=== PATIENT | female | born 1960 | race Caucasian/White ===

== ENCOUNTER 2019-11-01 06:22 | Emergency (ER) | payer OTHER ==
[2019-11-01 06:30] VITALS: BP 129/73
--- NOTE | 2019-11-01 06:48 | ED Physician Documentation ---
PD HPI URI - Stated complaint Stated Complaint: COUGH - Chief complaint Chief Complaint: Resp - History obtained from History obtained from: Patient - History of Present Illness Timing - onset: How many weeks ago (2) Timing duration: Weeks (2) Timing details: Gradual onset, Still present Associated symptoms: Fever, Nasal congestion, Sore throat, Productive cough, Chest pain, Dyspnea. No: Ear pain, Rhinorrhea Contributing factors: No: COPD / asthma Worsened by: Activity, Breathing Recently seen: Clinic - Additional information Additional information: This is a 59-year-old woman who presents with complaints that she think she has bronchitis. She is had a cold for about the past 2 weeks it started out with a scratchy throat and then developed a cough that was productive of phlegm and the phlegm kind of cleared up but now has moved up into her nose and her sinuses. About a week ago she started to the point she was just constantly coughing with this harsh cough and now she just brings up a little bit of phlegm occasionally no blood in it. It hurts for her to take a deep breath and she is been having sharp pains across the anterior chest with breathing. She had some wheezing last week but she did go and see her primary care provider and they provided a prescription for albuterol which seems to be helping some and told her to take Mucinex DM. She is exceedingly thirsty. And she cannot sleep at night because of the cough. She was also given a prescription for a Z-Nicholas but did not start it. She had a fever up to 101 degrees about 5 days ago and no fever since. She is continued to work through this. She is an ex-smoker. Review of Systems Constitutional: reports: Fever Ears: denies: Ear pain Nose: reports: Congestion Throat: reports: Sore throat Cardiac: reports: Chest pain / pressure Respiratory: reports: Dyspnea, Cough GI: denies: Vomiting PD PAST MEDICAL HISTORY - Present Medications Home Medications: Ambulatory Orders Medication Instructions Recorded Confirmed No Known Home Medications 11/01/19 11/01/19 - Allergies Allergies/Adverse Reactions: Allergies Allergy/AdvReac Type Severity Reaction Status Date / Time No Known Drug Allergies Allergy Verified 11/01/19 06:30 PD ED PE NORMAL - Vitals Vital signs reviewed: Yes - General General: Alert and oriented X 3, No acute distress, Well developed/nourished - HEENT HEENT: Atraumatic, PERRL, EOMI, Ears normal. No: Moist mucous membranes (She has very dry mucous membranes.) - Neck Neck: Supple, no meningeal sign, No adenopathy - Cardiac Cardiac: RRR, No murmur, Strong equal pulses - Respiratory Respiratory: No respiratory distress, Other (Diminished breath sounds at the bases and a rub at the left base. She is a very harsh sounding cough.) - Abdomen Abdomen: Normal bowel sounds - Derm Derm: Normal color, Warm and dry - Neuro Neuro: Alert and oriented X 3, No motor deficit, No sensory deficit, Normal speech - Psych Psych: Normal mood, Normal affect Results - Vitals Vitals: Vital Signs - 24 hr 11/01/19 06:26 Temperature 37.1 C Heart Rate 81 Respiratory 16 Rate Blood Pressure 129/73 O2 Saturation 94 Oxygen O2 Source Room air PD MEDICAL DECISION MAKING - ED course Complexity details: d/w patient ED course: Patient already has the Z-Nicholas prescription at home of encouraged her to go ahead and start it. Recommended steam to help moisturize her mucous membranes and c hange to using Delsym for the cough which is just a straight cough suppressant. Have also asked her to use the albuterol every 4 hours for the next 3 to 4 days. Limit ibuprofen to 4 tablets every 8 hours with food. She is given a note to be off work until Monday. Departure - Departure Disposition: Home, Self Care Clinical Impression: Bronchitis Condition: Good Instructions: ED Upper Resp Infec Abx Tx Follow-Up: [facility] [Provider Group] Comments: Use steam to help moisturize your mucous membranes. Try Delsym [id number] as a cough suppressant. Limit ibuprofen to 4 tablets every 8 hours with food. Use the albuterol inhaler every 4 hours for the next 3 to 4 days. Take the Z- Nicholas that was prescribed by your primary care provider. If you are not seeing improvement after starting the Z-Nicholas within 3 days you should be reevaluated. Forms: Activity restrictions
== END 2019-11-01 07:21 | disposition home or self-care (01) ==
LOC: ED 06:22
DX: J40 Bronchitis, not specified as acute or chronic (principal)
CPT/HCPCS: 99282; 99284

== ENCOUNTER 2021-06-20 13:15 | Emergency (ER) | payer OTHER ==
--- NOTE | 2021-06-20 13:49 | ED Physician Documentation ---
PD HPI FOCAL NEURO - Stated complaint Stated Complaint: LEGS/ARMS TINGLING - Chief complaint Chief Complaint: Neuro - History obtained from History obtained from: Patient - Additional information Additional information: 61-year-old woman has been smoking for the last 4 years. Prior to that she was not smoking for about 10 years. Starting 2 days ago while smoking a cigarette she started to feel weird and flushed and tingly in all 4 extremities like she was not getting enough oxygen. The only thing that changed around that time as she had given blood. There is been no change in the frequency of smoking, brand of cigarette that she buys, diet etc. 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 : None HEENT: None Psych: None Musculoskeletal: None Derm: None - Past Surgical History Past Surgical History: Yes General: Other - Present Medications Home Medications: Ambulatory Orders Medication Instructions Recorded Confirmed No Known Home Medications 11/01/19 11/01/19 - Allergies Allergies/Adverse Reactions: Allergies Allergy/AdvReac Type Severity Reaction Status Date / Time No Known Drug Allergies Allergy Verified 06/20/21 13:32 - Social History Does the pt smoke?: Yes Smoking Status: Current every day smoker Does the pt drink ETOH?: No Does the pt have substance abuse?: No - Immunizations Immunizations are current?: Yes - POLST Patient has POLST: No PD ED PE NORMAL - Vitals Vital signs reviewed: Yes - General General: Alert and oriented X 3, No acute distress - Neck Neck: Supple, no meningeal sign, No bony TTP - Cardiac Cardiac: RRR, No murmur, Other (Excellent radial and pedal pulses in all 4 extremities. Normal cap refill in all 4 extremities) - Respiratory Respiratory: No respiratory distress, Clear bilaterally - Extremities Extremities: No edema, No calf tenderness / cord - Neuro Neuro: Alert and oriented X 3, No motor deficit, No sensory deficit, Normal speech Results - Vitals Vitals: Vital Signs - 24 hr 06/20/21 06/20/21 13:28 14:49 Temperature 36 C L 36.6 C Heart Rate 86 53 L Respiratory 15 14 Rate Blood Pressure 139/78 H 134/79 H O2 Saturation 99 99 Oxygen O2 Source Room air - EKG (time done) 1410 Rate: Rate (enter#) (53) Rhythm: NSR [place]: Normal Intervals: Normal [place] QRS: Normal Ischemia: Normal ST segments - Labs Labs: Laboratory Tests 06/20/21 06/20/21 06/20/21 13:58 13:58 13:58 WBC 6.7 RBC 4.15 L Hgb 13.4 Hct 39.9 MCV 96.1 MCH 32.3 H MCHC 33.6 RDW 12.6 Plt Count 235 MPV 10.4 Neut # (Auto) 5.1 Lymph # (Auto) 1.1 L [place] # (Auto) 0.4 Eos # (Auto) 0.0 Baso # (Auto) 0.0 Absolute Nucleated RBC 0.00 Nucleated RBC % 0.0 VBG pH VBG pCO2 VBG pO2 VBG HCO3 VBG Total CO2 VBG O2 Saturation VBG Base Excess VBG Total Hgb VBG Oxyhemoglobin VBG Carboxyhemoglobin VBG Methemoglobin Sodium 141 Potassium 3.5 Chloride 101 Carbon Dioxide 29 Anion Gap 11.0 BUN 13 Creatinine 0.7 Estimated GFR (MDRD) 86 L Glucose 103 H Calcium 9.7 Magnesium 2.4 TSH 1.85 06/20/21 06/20/21 13:58 13:58 WBC RBC Hgb Hct MCV MCH MCHC RDW Plt Count MPV Neut # (Auto) Lymph # (Auto) [place] # (Auto) Eos # (Auto) Baso # (Auto) Absolute Nucleated RBC Nucleated RBC % VBG pH 7.401 VBG pCO2 50.4 VBG pO2 25.6 VBG HCO3 30.6 H VBG Total CO2 32.1 H VBG O2 Saturation 48.5 L VBG Base Excess 4.7 H VBG Total Hgb 14.2 VBG Oxyhemoglobin 49 L VBG Carboxyhemoglobin 1.6 H VBG Methemoglobin 0.2 Sodium Potassium Chloride Carbon Dioxide Anion Gap BUN Creatinine Estimated GFR (MDRD) Glucose Calcium Magnesium TSH PD MEDICAL DECISION MAKING - ED course ED course: 61-year-old woman with painless paresthesias that seem associated with smoking. Differential diagnosis would include electrolyte disturbance, thyroid issue, anxiety. There is no evidence of vascular disease and the description is otherwise inconsistent with that. Labs relatively unremarkable but potassium low normal at 3.5 might be contributory. Departure - Departure Disposition: 01 Home, Self Care Clinical Impression: Paresthesias Condition: Good Record reviewed to determine appropriate education?: Yes Instructions: ED Paraesthesias Comments: As discussed, no major pertinent positive findings were found today, your thyroid function is still pending I will follow up on that and call you if it needs to be addressed. Your potassium level was on the very low end of normal at 3.5, that might cause some symptoms and it is reasonable to trial the potassium supplement we gave you here. Otherwise it robledo return for new or worsening symptoms. Discharge Date/Time: 06/20/21 14:50
[2021-06-20 14:07] LABS: VBG BASE EXCESS 4.7 mmol/L (-2 - +2); VBG HCO3 30.6 mmol/L (23-28); VBG OXYGEN SATURATION 48.5 % (60-80); VBG PCO2 50.4 mmHg (41-51); VBG PH 7.401 (7.31-7.41); VBG PO2 25.6 mmHg (25-47); VBG TOTAL CO2 32.1 mmol/L (24-29)
[2021-06-20 14:08] LABS: CARBOXYHEMOGLOBIN VENOUS 1.6 % (0-1.5); HEMOGLOBIN TOTAL, VENOUS WB 14.2 g/dL (12.0-18.0); METHEMOGLOBIN VENOUS 0.2 % (0-1.5)
[2021-06-20 14:13] LABS: CALCIUM 9.7 mg/dL (8.5-10.3); CREATININE 0.7 mg/dL (0.4-1.0); MAGNESIUM 2.4 mg/dL (1.7-2.8); POTASSIUM 3.5 mmol/L (3.5-5.0)
[2021-06-20 14:19] LABS: BASOPHILS % (AUTO) 0.4 %; EOSINOPHILS % (AUTO) 0.6 %; HCT - HEMATOCRIT 39.9 % (37.0-47.0); HGB - HEMOGLOBIN 13.4 g/dL (12.0-16.0); LYMPHOCYTES # (AUTO) 1.1 10^3/uL (1.5-3.5); LYMPHOCYTES % (AUTO) 16.4 %; MEAN CORPUSCULAR HEMOGLOBIN 32.3 pg (27.0-31.0); MEAN CORPUSCULAR HGB CONC 33.6 g/dL (32.0-36.0); MEAN CORPUSCULAR VOLUME 96.1 fL (81.0-99.0); MEAN PLATELET VOLUME 10.4 fL (7.9-10.8); MONOCYTES # (AUTO) 0.4 10^3/uL (0.0-1.0); MONOCYTES % (AUTO) 6.3 %; NEUTROPHILS # (AUTO) 5.1 10^3/uL (1.5-6.6); PLT - PLATELET COUNT 235 10^3/uL (130-450); RED BLOOD COUNT 4.15 10^6/uL (4.20-5.40); RED CELL DISTRIBUTION WIDTH 12.6 % (12.0-15.0); WHITE BLOOD COUNT 6.7 x10^3/uL (4.8-10.8)
[2021-06-20] MEDS ORDERED: POTASSIUM CHLORIDE 20 MEQ TABLET PO STA (14:31)
[2021-06-20 14:50] VITALS: BP 134/79
== END 2021-06-20 14:50 | disposition home or self-care (01) ==
LOC: ED 13:15
DX: R20.2 Paresthesia of skin (principal); F17.200 Nicotine dependence, unspecified, uncomplicated
CPT/HCPCS: 36415; 80048; 82375; 82803; 83735; 84443; 85025; 93005; 99283; 99284; A9270

== ENCOUNTER 2022-02-15 15:07 | Outpatient (CLI) | payer OTHER ==
--- NOTE | 2022-02-15 16:49 | DEXA Report ---
PROCEDURE: Dexa Spine and/or Hip INDICATIONS: SCREENING FOR OSTEOPOROSIS TECHNIQUE: Dual energy x-ray absorptiometry (DXA) was performed on a [employer]dot System. Regions measur ed are the AP Spine, femoral neck, and if needed forearm. COMPARISON: None. FINDINGS: Lumbar Spine: Bone Mineral Density 1.105 g/cm/cm,T score -0.6, normal Left Hip: Bone Mineral Density 0.9 g/cm/cm,T score -0.9, normal Left Femoral Neck: Bone Mineral Density 0.947 g/cm/cm, T score -0.7, normal (T score greater or equal to -1.0: NORMAL) (T score from -1.1 to -2.4: OSTEOPENIA) (T score less than or equal to -2.5 to: OSTEOPOROSIS) Impression: Bone mineral density as detailed above. Patients with diagnosis of osteoporosis or osteopenia should have regular bone mineral density assess ment. For those eligible for Medicare, routine testing is allowed once every 2 years. Testing frequ ency can be increased for patients who have rapidly progressing disease or for those who are receivin g medical therapy to restore bone mass. Reviewed by: Baldomero Dalal MD on 02/15/2022 4:48 PM PDT Approved by: Baldomero Dalal MD on 02/15/2022 4:48 PM PDT Station ID: [id number]
== END 2022-02-15 15:08 | disposition home or self-care (01) ==
LOC: DI 15:07
PROVIDERS: ATTEND Nurse Practitioner Family
DX: Z13.820 Encounter for screening for osteoporosis (principal)

== ENCOUNTER 2022-04-14 09:05 | Outpatient (CLI) | payer OTHER ==
--- NOTE | 2022-04-15 08:51 | Mammography Report ---
BILATERAL DIGITAL SCREENING MAMMOGRAM 3D/2D: 04/14/2022 CLINICAL: Routine screening. Comparison is made to exams dated: 02/22/2013 mammogram and 12/30/2010 mammogram - [facility]. The tissue of both breasts is heterogeneously dense. This may lower the sensitivity of marcus mography. No significant masses, calcifications, or other findings are seen in either breast. There has been no significant interval change. IMPRESSION: NEGATIVE There is no mammographic evidence of malignancy. A 1 year screening mammogram is recommended. This exam was interpreted at Station ID: [id number]. NOTE: For mammograms, a report in lay terms will be sent to the patient. Approximately 15% of breast malignancies will not be visualized mammographically. In the management of a palpable breast mass, a negative mammogram must not discourage biopsy of a clinically suspicious lesion. Electronically Signed By: Scott Roman M.D. ar/penrad:04/14/2022 11:56:33 ACR BI-RADS Category 1: Negative [id number] PARENCHYMAL PATTERN: (D) - The breast(s) demonstrate(s) heterogeneously dense fibroglandular srinivasan sood. BI-RADS CATEGORY: (1) - 1 RECOMMENDATION: (ANNUAL) - Recommend routine annual screening mammography. [id number] 1 year screening LATERALITY: (B)
== END 2022-04-14 09:06 | disposition home or self-care (01) ==
LOC: DI.N 09:05
PROVIDERS: ATTEND Nurse Practitioner Family
DX: Z12.31 Encounter for screening mammogram for malignant neoplasm of breast (principal)

== ENCOUNTER 2022-05-13 11:24 | Day surgery (SDC) | payer OTHER ==
[2022-05-13] MEDS ORDERED: LACTATED RINGERS 1,000 ML IV ONE ×2 (11:29→13:42)
[2022-05-13] MEDS ORDERED: PROPOFOL 500 MG/50 ML 500 MG/50 ML VIAL ONE (11:35)
[2022-05-13] MEDS ORDERED: LIDOCAINE-MPF 2% 5 ML VIAL ONE (11:35)
--- NOTE | 2022-05-13 12:04 | ANESTHESIA ---
Pre-Anesthesia VS, & Labs - Diagnosis COLON SCREENING - Procedure COLONOSCOPY Vital Signs: Temp Pulse Resp BP Pulse Ox 36.4 C L 61 16 141/85 H 100 05/13/22 11:39 05/13/22 11:39 05/13/22 11:39 05/13/22 11:39 05/13/22 11:39 Height: 5 ft 7 in Weight (kg): 53 kg Body Mass Index: 18.3 BMI Classification: Underweight - NPO >8 hours - Is Patient ?: No Home Medications and Allergies No Known Home Medications 11/01/19 Allergies/Adverse Reactions: Allergies Allergy/AdvReac Type Severity Reaction Status Date / Time No Known Drug Allergies Allergy Verified 05/12/22 12:48 Anes History & Medical History - Anesthetic History Anesthesia Complications: reports: No previous complications Family history of Anesthesia Complications: Denies Family history of Malignant Hyperthermia: Denies - Medical History Cardiovascular: reports: None Pulmonary: reports: None Gastrointestinal: reports: None Urinary: reports: None Neuro: reports: None Musculoskeletal: reports: None Endocrine/Autoimmune: reports: None Blood Disorders: reports: None Skin: reports: None Smoking Status: Current every day smoker (1/2 PPD X 30 YRS) Psychosocial: reports: Alcohol (1-2 GLASS OF WINE NIGHTLY) History of Cancer?: No - Surgical History General: reports: Other Eyes Ears Nose Throat (EENT): reports: Cataracts Gynecologic: reports: Other Exam General: Alert, Oriented x3, Cooperative, No acute distress Dental: WNL, Poor dentition Mouth Openin Fingerbreadth Neck Mobility: Normal Mallampati classification: III Thyromental Distance: less than 4 cm Respiratory: Lungs clear, Normal breath sounds, No respiratory distress, No accessory muscle use Cardiovascular: Regular rate, Normal S1, Normal S2, No murmurs Mental/Cognitive Status: Alert/Oriented X3, Normal for patient Cognitive Status: Within normal limits Plan Anesthesia Type: General, Total IV Consent for Procedure(s) Verified and Reviewed: Yes Code Status: Attempt Resuscitation ASA classification: 2-Mild systemic disease Is this case an emergency?: No
[2022-05-13] MEDS ORDERED: MIDAZOLAM 2 MG/2 ML VIAL ONE (12:24)
[2022-05-13] MEDS ORDERED: GLYCOPYRROLATE 1 MG/5 ML VIAL ONE (13:21)
[2022-05-13] MEDS ORDERED: PROPOFOL 200 MG/20 ML VIAL IVP ONE (13:30)
--- NOTE | 2022-05-13 13:53 | ANESTHESIA POST OP EVALUATION ---
Anesthesia Post Eval - Post Anesthesia Eval Vitals: Last Vital Signs Temp 36.0 C L 05/13/22 13:40 Pulse 61 05/13/22 13:40 Resp 16 05/13/22 13:40 BP 124/82 H 05/13/22 13:40 Pulse Ox 100 05/13/22 13:40 CV Function Including HR & BP: Stable Pain Control: Satisfactory Nausea & Vomiting: Negative Mental Status: Baseline Respiratory Status: Airway Patent Hydration Status: Satisfactory Anesthesia Complications: None
[2022-05-13 14:31] VITALS: BP 141/80
== END 2022-05-13 11:25 | disposition home or self-care (01) ==
LOC: SDS 11:24
PROVIDERS: ATTEND Surgery
PROC: 0DBN8ZX Excision of Sigmoid Colon, Via Natural or Artificial Opening Endoscopic, Diagnostic (ICD-10-PCS; 2022-05-13)
PROC: 0DBK8ZX Excision of Ascending Colon, Via Natural or Artificial Opening Endoscopic, Diagnostic (ICD-10-PCS; 2022-05-13)
PROC: 0DBM8ZX Excision of Descending Colon, Via Natural or Artificial Opening Endoscopic, Diagnostic (ICD-10-PCS; 2022-05-13)
PROC: 0DBP8ZX Excision of Rectum, Via Natural or Artificial Opening Endoscopic, Diagnostic (ICD-10-PCS; principal; 2022-05-13 14:00)
DX: Z12.11 Encounter for screening for malignant neoplasm of colon (principal); D12.2 Benign neoplasm of ascending colon; D12.8 Benign neoplasm of rectum; K62.1 Rectal polyp; K63.5 Polyp of colon; F17.210 Nicotine dependence, cigarettes, uncomplicated; R63.6 Underweight; Z68.1 Body mass index [BMI] 19.9 or less, adult
CPT/HCPCS: 45380; 45385; J7120